=== PATIENT | male | born 1970 | race African-American/Black ===

== ENCOUNTER 2024-08-25 15:40 | Emergency (ER) | payer OTHER ==
[2024-08-25 16:28] LABS: #Basophils Less than 0.03 10x3/uL (0.0-0.2); #Eosinophils Less than 0.03 10x3/uL (0.0-0.5); #Monocytes 0.49 10x3/uL (0.0-1.1); #Neutrophils 4.26 10x3/uL (1.5-8.4); %Basophils 0.4 % (0.0-2.0); %Eosinophils 0.2 % (0.0-6.0); %Lymphocytes 13.7 % (18.0-47.0); %Monocytes 8.8 % (0.0-10.0); %Neutrophils 76.5 % (40.0-75.0); Hematocrit 38.8 % (38.8-50.0); Hemoglobin 12.3 g/dL (13.5-17.5); Mean Corpuscular HGB CONC 31.7 g/dL (32.0-36.0); Mean Corpuscular Hemoglobin 26.7 pg (27.0-33.0); Mean Corpuscular Volume 84.3 fL (81.2-95.1); Mean Platelet Volume 10.1 fL (7.4-10.4); Platelet Count 209 10x3/uL (150-450); RBC Distribution Width 18.7 % (11.5-14.5); White Blood Cell (WBC) Count 5.56 10x3/uL (3.5-10.5)
[2024-08-25 16:41] LABS: ALT (SGPT) 15 U/L (8-55); AST (SGOT) 33 U/L (5-34); Albumin 4.4 g/dL (3.5-5.0); Alkaline Phosphatase 70 U/L (40-110); Anion Gap 19 mmol/L (10-20); BUN (Urea Nitrogen) 10 mg/dL (8.4-25.7); Bilirubin, Total 0.3 mg/dL (0.2-1.2); Calc. Creatinine Clearance 0 mL/min (70-130); Calcium 9.5 mg/dL (7.8-10.44); Carbon Dioxide 23 mmol/L (22-29); Chloride 102 mmol/L (98-107); Estimated GFR 81; Globulin 3.8 g/dL (2.4-3.5); Glucose 102 mg/dL (70-105); Lipase 18 U/L (8-78); Magnesium 2.3 mg/dL (1.6-2.6); Potassium 4.7 mmol/L (3.5-5.1); Protein, Total 8.2 g/dL (6.0-8.3); Sodium 139 mmol/L (136-145)
[2024-08-25 16:44] LABS: Troponin I 0.024 ng/mL (< 0.028)
[2024-08-25 17:14] LABS: Actual Bicarbonate (HCO3v) 25.2 mEq/L (22-28); Analyzer IN Cardio CS ER; Base Excess -1.9 mEq/L (-2 - +2); Calcium, Ionized (venous) 1.13 mmol/L (1.16-1.32); Chloride (VBG) 99 mmol/L (98-106); Hematocrit-VBG 38 % (42.0-52.0); Hemoglobin (Hb) 12.9 g/dL (13.1-17.2); Potassium (VBG) 4.84 mmol/L (3.70-5.30); Puncture Site Other Site; RapidComm Collect By NURSE; Sodium 141 mmol/L (133-146); pH (venous) 7.297 (7.32-7.43)
== END 2024-08-25 18:42 | disposition home or self-care (01) ==
LOC: CSHERS 15:40
DX: I10 Essential (primary) hypertension (principal); F41.9 Anxiety disorder, unspecified
CPT/HCPCS: 70450; 80053; 82805; 83605; 83690; 83735; 83880; 84484; 85025; 93005; 94760